=== PATIENT | male | born 1960 | race Caucasian/White ===

== ENCOUNTER 2024-02-29 10:29 | Observation (INO) | payer MEDICARE, OTHER ==
--- NOTE | 2024-02-29 11:06 | ED ---
General Adult HPI - General Chief complaint: Dizziness Stated complaint: Dizziness Time Seen by Provider: 02/29/24 10:30 Source: patient, RN notes reviewed Mode of arrival: EMS Limitations: no limitations - History of Present Illness Initial comments: Patient is a 63-year-old male present to the emergency department with concerns for lightheadedness. Patient states onset of symptoms was this morning. Patient felt lightheaded when he got up and felt achy. Patient does admit to having some shortness of breath and mild chest discomfort at the same time. Symptoms have near resolved at this time only feels a little bit achy. Patient is at [facility] secondary to history of cocaine use, last use was a few weeks ago as he was in a mental health facility followed by [facility] rehab facility - Related Data Home Medications Medication Instructions Recorded Confirmed Mirtazapine 7.5 mg PO HS 02/29/24 02/29/24 QUEtiapine [SEROquel] 50 mg PO HS 02/29/24 02/29/24 buPROPion HCL [Wellbutrin SR] 150 mg PO Q12H 02/29/24 02/29/24 lamoTRIgine [LaMICtal] 50 mg PO DAILY 02/29/24 02/29/24 Allergies Allergy/AdvReac Type Severity Reaction Status Date / Time No Known Allergies Allergy Verified 02/29/24 13:10 Review of Systems ROS Statement: Those systems with pertinent positive or pertinent negative responses have been documented in the HPI. ROS Other: All systems not noted in ROS Statement are negative. Constitutional: Denies: fever Eyes: Denies: eye pain ENT: Denies: throat pain Respiratory: Reports: as per HPI, dyspnea Cardiovascular: Reports: as per HPI, chest pain Gastrointestinal: Denies: abdominal pain Musculoskeletal: Denies: back pain Past Medical History Additional Past Medical History / Comment(s): Arthritis History of Any Multi-Drug Resistant Organisms: None Reported Past Surgical History: No Surgical Hx Reported Past Psychological History: Depression Smoking Status: Current every day smoker Past Alcohol Use History: None Reported Past Drug Use History: Cocaine, Marijuana General Exam Limitations: no limitations General appearance: alert, in no apparent distress Head exam: Present: normocephalic Eye exam: Present: normal appearance ENT exam: Present: other (Poor dentition) Neck exam: Present: normal inspection Respiratory exam: Present: normal lung sounds bilaterally Cardiovascular Exam: Present: regular rate, normal rhythm, normal heart sounds Expanded Peripheral pulses: 2+: Radial (R), Radial (L), Posterior Tibialis (R), Posterior Tibialis (L) GI/Abdominal exam: Present: soft. Absent: tenderness Extremities exam: Present: normal inspection. Absent: pedal edema, calf tenderness Neurological exam: Present: alert Psychiatric exam: Present: normal affect, normal mood Skin exam: Present: normal color Course Vital Signs 02/29/24 02/29/24 02/29/24 10:39 12:08 12:09 Temperature 98.5 F Pulse Rate 58 L Pulse Rate [ 56 L 59 L Manager Drug Safety ] Respiratory 18 18 18 Rate Blood Pressure 130/81 Blood Pressure 134/79 [Right Arm Sitting] Blood Pressure [Right Arm Standing] Blood Pressure 133/88 [Right Arm Supine] O2 Sat by Pulse 96 97 96 Oximetry 02/29/24 12:10 Temperature Pulse Rate Pulse Rate [ 60 Manager Drug Safety ] Respiratory 18 Rate Blood Pressure Blood Pressure [Right Arm Sitting] Blood Pressure 134/74 [Right Arm Standing] Blood Pressure [Right Arm Supine] O2 Sat by Pulse 95 Oximetry EKG Findings - EKG Results: EKG: interpreted by ERMD, sinus rhythm, normal axis, normal QRS, normal ST/T EKG shows: bradycardia Medical Decision Making - Medical Decision Making Was pt. sent in by a medical professional or institution (NELSY Kang, CHIEF NURSING OFFICER, urgent care, hospital, or penitentiary...) When possible be specific @ -Patient sent from [facility] Did you speak to anyone other than the patient for history (EMS, parent, family, police, friend...)? What history was obtained from this source @ -No Did you review nursing and triage notes (agree or disagree)? Why? @ -I reviewed and agree with nursing and triage notes Were old charts reviewed (outside hosp., previous admission, EMS record, old EKG, old radiological studies, urgent care reports/EKG's, penitentiary records)? Report findings @ -Notes reviewed from [facility] including concerns for chest pain and shortness of breath with history of cardiac disease Differential Diagnosis (chest pain, altered mental status, abdominal pain women, abdominal pain men, vaginal bleeding, weakness, fever, dyspnea, syncope, headache, dizziness, GI bleed, back pain, seizure, CVA, palpatations, mental health, musculoskeletal)? @ -Not applicable EKG interpreted by me (3pts min.). @ -As above X-rays interpreted by me (1pt min.). @ -Chest x-ray shows no acute process CT interpreted by me (1pt min.). @ -CT chest negative for pulmonary embolism U/S interpreted by me (1pt. min.). @ -None done What testing was considered but not performed or refused? (CT, X-rays, U/S, labs)? Why? @ -None What meds were considered but not given or refused? Why? @ -None Did you discuss the management of the patient with other professionals (professionals i.e. DrWinifred, PA, CHIEF NURSING OFFICER, lab, RT, psych nurse, social welfare clerk, manager mission, teacher, court officer, caser up)? Give summary @ -Case discussed with Dr. Perla who will admit covering hospital call Was smoking cessation discussed for >3mins.? @ -No Was critical care preformed (if so, how long)? @ -No Were there social determinants of health that impacted care today? How? (Homelessness, low income, unemployed, alcoholism, drug addiction, transportation, low edu. Level, literacy, decrease access to med. care, usp, rehab)? @ -No Was there de-escalation of care discussed even if they declined (Discuss DNR or withdrawal of care, Hospice)? DNR status @ -No What co-morbidities impacted this encounter? (DM, HTN, Smoking, COPD, CAD, Cancer, CVA, ARF, Chemo, Hep., AIDS, mental health diagnosis, sleep apnea, morbid obesity)? @ -Coronary artery disease, cocaine use Was patient admitted / discharged? Hospital course, mention meds given and route, prescriptions, significant lab abnormalities, going to OR and other pertinent info. @ -Patient presents with lightheadedness with associated chest pain and shortness of breath and cardiac history. Patient will be admitted, admission orders written. Consult placed Undiagnosed new problem with uncertain prognosis? @ -No Drug Therapy requiring intensive monitoring for toxicity (Heparin, Nitro, Insulin, Cardizem)? @ -No Were any procedures done? @ -No Diagnosis/symptom? @ -Chest pain Acute, or Chronic, or Acute on Chronic? @ -Acute Uncomplicated (without systemic symptoms) or Complicated (systemic symptoms)? @ -Default Side effects of treatment? @ -No Exacerbation, Progression, or Severe Exacerbation? @ -No Poses a threat to life or bodily function? How? (Chest pain, USA, MA, pneumonia, PE, COPD, DKA, ARF, appy, cholecystitis, CVA, Diverticulitis, Homicidal, Suicidal, threat to staff... and all critical care pts) @ -Threat to cardiac function - Lab Data Result diagrams: 02/29/24 11:43 02/29/24 11:43 Lab Results 02/29/24 02/29/24 02/29/24 Range/Units 11:43 11:43 11:43 WBC 9.4 (3.8-10.6) k/uL RBC 4.71 (4.30-5.90) m/uL Hgb 14.7 (13.0-17.5) gm/dL Hct 45.1 (39.0-53.0) % MCV 95.8 (80.0-100.0) fL MCH 31.2 (25.0-35.0) pg MCHC 32.6 (31.0-37.0) g/dL RDW 13.2 (11.5-15.5) % Plt Count 178 (150-450) k/uL MPV 9.6 Neutrophils % 54 % Lymphocytes % 31 % Monocytes % 8 % Eosinophils % 2 % Basophils % 1 % Neutrophils # 5.0 (1.3-7.7) k/uL Lymphocytes # 2.9 (1.0-4.8) k/uL Monocytes # 0.8 (0-1.0) k/uL Eosinophils # 0.2 (0-0.7) k/uL Basophils # 0.1 (0-0.2) k/uL PT 11.3 (10.0-12.5) sec INR 1.0 (<1.2) APTT 23.8 (22.0-30.0) sec D-Dimer 0.82 H (<0.60) mg/L FEU Sodium 136 L (137-145) mmol/L Potassium 4.7 (3.5-5.1) mmol/L Chloride 106 (98-107) mmol/L Carbon Dioxide 25 (22-30) mmol/L Anion Gap 5 mmol/L BUN 19 (9-20) mg/dL Creatinine 0.76 (0.66-1.25) mg/dL Est GFR (CKD-EPI)AfAm >90 (>60 ml/min/1.73 sqM) Est GFR (CKD-EPI)NonAf >90 (>60 ml/min/1.73 sqM) Glucose 93 (74-99) mg/dL Calcium 8.9 (8.4-10.2) mg/dL Magnesium 1.9 (1.6-2.3) mg/dL Total Bilirubin 0.8 (0.2-1.3) mg/dL AST 61 H (17-59) U/L ALT 73 H (4-49) U/L Alkaline Phosphatase 100 (38-126) U/L Troponin I (0.000-0.034) ng/mL Total Protein 7.4 (6.3-8.2) g/dL Albumin 4.0 (3.5-5.0) g/dL 02/29/24 Range/Units 11:43 WBC (3.8-10.6) k/uL RBC (4.30-5.90) m/uL Hgb (13.0-17.5) gm/dL Hct (39.0-53.0) % MCV (80.0-100.0) fL MCH (25.0-35.0) pg MCHC (31.0-37.0) g/dL RDW (11.5-15.5) % Plt Count (150-450) k/uL MPV Neutrophils % % Lymphocytes % % Monocytes % % Eosinophils % % Basophils % % Neutrophils # (1.3-7.7) k/uL Lymphocytes # (1.0-4.8) k/uL Monocytes # (0-1.0) k/uL Eosinophils # (0-0.7) k/uL Basophils # (0-0.2) k/uL PT (10.0-12.5) sec INR (<1.2) APTT (22.0-30.0) sec D-Dimer (<0.60) mg/L FEU Sodium (137-145) mmol/L Potassium (3.5-5.1) mmol/L Chloride (98-107) mmol/L Carbon Dioxide (22-30) mmol/L Anion Gap mmol/L BUN (9-20) mg/dL Creatinine (0.66-1.25) mg/dL Est GFR (CKD-EPI)AfAm (>60 ml/min/1.73 sqM) Est GFR (CKD-EPI)NonAf (>60 ml/min/1.73 sqM) Glucose (74-99) mg/dL Calcium (8.4-10.2) mg/dL Magnesium (1.6-2.3) mg/dL Total Bilirubin (0.2-1.3) mg/dL AST (17-59) U/L ALT (4-49) U/L Alkaline Phosphatase (38-126) U/L Troponin I <0.012 (0.000-0.034) ng/mL Total Protein (6.3-8.2) g/dL Albumin (3.5-5.0) g/dL Disposition Clinical Impression: Chest pain Disposition: ADMITTED IP TO THIS HOSP Is patient prescribed a controlled substance at d/c from ED?: No Referrals: None,Stated [Primary Care Provider] - 1-2 days Time of Disposition: 13:42
--- NOTE | 2024-02-29 11:26 | XR ---
EXAMINATION TYPE: XR chest 2V DATE OF EXAM: 02/29/2024 11:22 AM COMPARISON: None CLINICAL INDICATION: Male, 63 years old with history of Chest Pain; [facility] TECHNIQUE: XR chest 2V Frontal and lateral views of the chest. FINDINGS: Lungs/Pleura: There is no evidence of pleural effusion, focal consolidation, or pneumothorax. Pulmonary vascularity: Unremarkable. Heart/mediastinum: Cardiomediastinal silhouette is unremarkable. Musculoskeletal: No acute osseous pathology. IMPRESSION: No acute cardiopulmonary disease/process. [facility], , 02/29/2024 11:24 AM
[2024-02-29] MEDS: ASPIRIN 81 MG PO STA (11:43)
[2024-02-29 12:04] LABS: Basophils # (A) 0.1 k/uL (0-0.2); Basophils % (A) 1 %; Eosinophils # (A) 0.2 k/uL (0-0.7); Eosinophils % (A) 2 %; HCT 45.1 % (39.0-53.0); HGB 14.7 gm/dL (13.0-17.5); Lymphocytes # (A) 2.9 k/uL (1.0-4.8); Lymphocytes % (A) 31 %; MCH 31.2 pg (25.0-35.0); MCHC 32.6 g/dL (31.0-37.0); MCV 95.8 fL (80.0-100.0); Mean Platelet Volume 9.6; Monocytes # (A) 0.8 k/uL (0-1.0); Monocytes % (A) 8 %; Neutrophils % (A) 54 %; Platelet Count 178 k/uL (150-450); RBC 4.71 m/uL (4.30-5.90); RDW 13.2 % (11.5-15.5); WBC 9.4 k/uL (3.8-10.6)
[2024-02-29 12:13] LABS: ALT 73 U/L (4-49); AST 61 U/L (17-59); African American GFR (CKD) >90 (>60 ml/min/1.73 sqM); Alkaline Phosphatase 100 U/L (38-126); Anion Gap 5 mmol/L; Blood Urea Nitrogen 19 mg/dL (9-20); Calcium 8.9 mg/dL (8.4-10.2); Carbon Dioxide 25 mmol/L (22-30); Chloride 106 mmol/L (98-107); Glucose 93 mg/dL (74-99); Magnesium 1.9 mg/dL (1.6-2.3); Non-African American GFR(CKD) >90 (>60 ml/min/1.73 sqM); Potassium 4.7 mmol/L (3.5-5.1); Sodium 136 mmol/L (137-145); Total Bilirubin 0.8 mg/dL (0.2-1.3); Total Protein 7.4 g/dL (6.3-8.2)
[2024-02-29 12:16] LABS: Partial Thromboplastin Time 23.8 sec (22.0-30.0); Prothrombin Time 11.3 sec (10.0-12.5)
--- NOTE | 2024-02-29 13:13 | CT ---
EXAMINATION TYPE: CT angio chest CT DLP: 744.7 mGycm, Automated exposure control for dose reduction was used. DATE OF EXAM: 02/29/2024 1:07 PM COMPARISON: Chest radiograph from same day. CLINICAL INDICATION:Male, 63 years old with history of dyspnea; SOB TECHNIQUE/CONTRAST: CTA scan of the thorax is performed with IV Contrast, patient injected with 100 mL of Isovue 370, pul monary embolism protocol. MIP images are created and reviewed. FINDINGS: Pulmonary Artery: There is no evidence for a filling defect within the pulmonary vasculature to sugge st acute pulmonary embolism. The pulmonary artery is of normal size. Reflux of contrast into the IVC . Lungs/Pleura: No evidence of focal consolidation, pleural effusion or pneumothorax. Small bibasilar d ependent atelectasis. Linear scarring within the left apex. Few scattered punctate calcified granulom as. Airway: Large airways are patent. Heart: Heart is within normal limits for size.. No pericardial effusion. Vasculature: No evidence of aortic aneurysm. Mild atherosclerotic calcification of the aortic arch. B ovine aortic arch. Mediastinum: No evidence of adenopathy. Musculoskeletal: No acute osseous abnormalities. Multilevel degenerative disc disease. Scoliotic curv ature of the thoracic spine. Soft Tissues: Bilateral gynecomastia. Lower neck: No significant findings. Upper Abdomen: No significant findings. IMPRESSION: No evidence of pulmonary embolism or acute thoracic process. [facility], , 02/29/2024 1:11 PM
[2024-02-29] MEDS ORDERED: NITROGLYCERIN SL TABS 0.4 MG TAB SUBLINGUAL PRN (13:43)
[2024-02-29] MEDS: NITROGLYCERIN OINT 1 INCH/GM PACKET TOPICAL SCH (14:19)
--- NOTE | 2024-02-29 14:56 | P.HPIM ---
History of Present Illness H&P Date: 02/29/24 History of present illness; patient is a 63-year-old gentleman with past medical history significant for coronary artery disease, polysubstance abuse presented to the ER because of lightheadedness. Patient is going through detox at [place]. Patient stated that he was all right this morning when he started noticing getting lightheaded. Patient denied any blurred vision. There was no complaint of headache. Patient did complain of chest pain and shortness of breath. Chest pain was central in location, pressure-like, nonradiating. There was no complaint of fever or chills. Denies any orthopnea or PND. Because of the lightheadedness and chest pain, patient brought to the ER Initial lab work done in the ER showed showed WBC 9.4, hemoglobin 14.7, platelet count 178, D-dimer 0.82, sodium 130s, potassium 4.7, BUN 19, and 0.76, AST 61, ALT 73 troponin 0.0 point EKG done in the ER showed heart rate of 54, no ST segment elevation or depression seen, no T-wave inversions seen. Chest x-ray done in the ER no acute cardiopulmonary process CTA chest done was negative for PE Patient admitted to internal medicine service REVIEW OF SYSTEMS: CONSTITUTIONAL: No fever, no malaise, no fatigue. HEENT: No recent visual problems or hearing problems. Denied any sore throat. CARDIOVASCULAR: As mentioned above PULMONARY: As mentioned above GASTROINTESTINAL: No diarrhea, no nausea, no vomiting, no abdominal pain. NEUROLOGICAL: No headaches, no weakness, no numbness. HEMATOLOGICAL: Denies any bleeding or petechiae. GENITOURINARY: Denies any burning micturition, frequency, or urgency. MUSCULOSKELETAL/RHEUMATOLOGICAL: Denies any joint pain, swelling, or any muscle pain. ENDOCRINE: Denies any polyuria or polydipsia. The rest of the 14-point review of systems is negative. PHYSICAL EXAMINATION: GENERAL: The patient is alert and oriented x3, not in any acute distress. Well developed, well nourished. HEENT: Pupils are round and equally reacting to light. EOMI. No scleral icterus. No conjunctival pallor. Normocephalic, atraumatic. No pharyngeal erythema. No thyromegaly. CARDIOVASCULAR: S1 and S2 present. No murmurs, rubs, or gallops. PULMONARY: Chest is clear to auscultation, no wheezing or crackles. ABDOMEN: Soft, nontender, nondistended, normoactive bowel sounds. No palpable organomegaly. MUSCULOSKELETAL: No joint swelling or deformity. EXTREMITIES: No cyanosis, clubbing, or pedal edema. NEUROLOGICAL: Gross neurological examination did not reveal any focal deficits. SKIN: No rashes. Assessment and plan Chest pain, rule out acute coronary syndrome Lightheadedness Polysubstance abuse Monitor vital signs Monitor CBC Monitor CMP Continue telemetry monitoring Trend troponin Orthostatics Ordered 2D echo Resume home meds Consult cardiology Labs and medication were reviewed.. Continue same treatment. Continue with symptomatic treatment. Resume home medication. Monitor labs and vitals. DVT and GI prophylaxis. Further recommendations as per clinical course of the patient Dictation was produced using [employer] dictation software. please excuse any grammatical, word or spelling errors. Past Medical History Additional Past Medical History / Comment(s): Arthritis History of Any Multi-Drug Resistant Organisms: None Reported Past Surgical History: No Surgical Hx Reported Past Psychological History: Depression Smoking Status: Current every day smoker Past Alcohol Use History: None Reported Past Drug Use History: Cocaine, Marijuana Medications and Allergies Home Medications Medication Instructions Recorded Confirmed Type Mirtazapine 7.5 mg PO HS 02/29/24 02/29/24 History QUEtiapine [SEROquel] 50 mg PO HS 02/29/24 02/29/24 History buPROPion HCL [Wellbutrin SR] 150 mg PO Q12H 02/29/24 02/29/24 History lamoTRIgine [LaMICtal] 50 mg PO DAILY 02/29/24 02/29/24 History Allergies Allergy/AdvReac Type Severity Reaction Status Date / Time No Known Allergies Allergy Verified 02/29/24 13:10 Physical Exam Vitals: Vital Signs Temp Pulse Pulse Resp BP BP BP 02/29/24 12:10 60 18 134/74 02/29/24 12:09 59 L 18 134/79 02/29/24 12:08 56 L 18 02/29/24 10:39 98.5 F 58 L 18 130/81 BP Pulse Ox 02/29/24 12:10 95 02/29/24 12:09 96 02/29/24 12:08 133/88 97 10/31/24 10:39 96 Intake and Output 02/28/24 02/29/24 02/29/24 22:59 06:59 14:59 Other: Weight 104.326 kg Results CBC & Chem 7: 02/29/24 11:43 02/29/24 11:43 Labs: Abnormal Lab Results - Last 24 Hours (Table) 02/29/24 02/29/24 Range/Units 11:43 11:43 D-Dimer 0.82 H (<0.60) mg/L FEU Sodium 136 L (137-145) mmol/L AST 61 H (17-59) U/L ALT 73 H (4-49) U/L
[2024-02-29] MEDS: MIRTAZAPINE 15 MG TAB PO SCH (23:07)
[2024-02-29] MEDS: buPROPion SR 150 MG TABLET.ER PO SCH (23:07)
[2024-02-29] MEDS: QUEtiapine 50 MG TAB PO SCH (23:07)
[2024-03-01] MEDS ORDERED: DOBUTamine DRIP for NUC MED 500 MG in DEXTROSE/WATER 1 250ML.BAG IV PRN ×2 (07:38→07:46)
[2024-03-01 07:44] VITALS: BP 109/65; PULSE 59; RESP 18; TEMP 99.2
[2024-03-01] MEDS ORDERED: DOBUTamine DRIP for NUC MED 500 MG/250 ML BAG IV ONE (08:00)
[2024-03-01 08:17] LABS: Basophils # (A) 0.07 X 10*3/uL (0.00-0.10); Basophils % (A) 0.8 %; Eosinophils # (A) 0.17 X 10*3/uL (0.04-0.35); HGB 14.6 g/dL (13.0-17.0); Lymphocytes # (A) 2.49 X 10*3/uL (0.90-5.00); Lymphocytes % (A) 29.3 %; MCH 32.1 pg (27.0-32.0); MCHC 33.2 g/dL (32.0-37.0); MCV 96.7 FL (80.0-97.0); Mean Platelet Volume 12.6 FL (9.5-12.2); Monocytes # (A) 0.92 X 10*3/uL (0.20-1.00); Monocytes % (A) 10.8 %; NRBC Per 100 WBC 0 X 10*3/uL (0.00-0.01); Neutrophils # (A) 4.83 X 10*3/uL (1.80-7.70); Neutrophils % (A) 56.7 %; Platelet Count 162 X 10*3/uL (140-440); RBC 4.55 X 10*6/uL (4.40-5.60); RDW 13.2 % (11.5-14.5); WBC 8.51 X 10*3/uL (4.50-10.00)
[2024-03-01] MEDS: lamoTRIgine 25 MG TAB PO SCH (08:32)
[2024-03-01] MEDS: ASPIRIN 325 MG TAB PO SCH (08:33)
[2024-03-01 08:56] LABS: ALT 65 U/L (10-49); AST 51 U/L (14-35); Albumin 3.7 g/dL (3.8-4.9); Albumin/Globulin Ratio 1.12 Ratio (1.60-3.17); Alkaline Phosphatase 118 U/L (41-126); BUN/Creat Ratio 21.33 Ratio (12.00-20.00); Blood Urea Nitrogen 19.2 mg/dL (9.0-27.0); Calcium 8.9 mg/dL (8.7-10.3); Carbon Dioxide 24.6 mmol/L (21.6-31.8); Chloride 104 mmol/L (96-109); Chol/HDL Ratio 4.31 Ratio; Globulin 3.3 g/dL (1.6-3.3); Glucose 102 mg/dL (70-110); LDL Cholesterol,Calculated 84.5 mg/dL (0.0-131.0); Potassium 4.5 mmol/L (3.5-5.5); Sodium 138 mmol/L (135-145); Total Bilirubin 0.4 mg/dL (0.3-1.2); VLDL Calculation 19.16 mg/dL (5.00-40.00)
--- NOTE | 2024-03-01 09:31 | P.CRDCN ---
History of Present Illness Consult date: 03/01/24 Consult reason: chest pain History of present illness: This is a 63-year-old male patient with past medical history of coronary artery disease with previous angioplasty in 2016, tobacco use and dependence, marijuana and cocaine use. We have been asked to evaluate the patient for chest pain. Patient arrived here from [place] rehab facility as he states he was feeling dizzy and weak in his legs. Patient denies having any shortness of b reath and no chest pain. The ER documented the patient did have some symptoms of chest pain that had resolved. His last cocaine use was a few weeks ago. He is very anxious to return to [place] and continue his rehab. He has no chest pain and no dizziness at this time. Blood pressure 120/70, heart rate 59, pulse ox 95% on room air. Orthostatic vital signs are negative. EKG: Sinus bradycardia Chest x-ray: No acute process. CTA of the chest showed no evidence of pulmonary embolism or acute thoracic process. Laboratory studies: WBC 8.5, hemoglobin 14.6. Electrolytes are normal. Creat inine 0.9. Troponin negative x 3. AST 51 and ALT 65. Triglycerides 95, cholesterol 135, LDL 84, HDL 31. Home cardiac medications: None Review Of Systems: At the time of my exam: CONSTITUTIONAL: Denies fever or chills. HEENT: Denies blurred vision, vision changes, or eye pain. Denies hemoptysis CARDIOVASCULAR: Denies chest pain. Denies orthopnea. Denies PND. Denies palpitations RESPIRATORY: Denies shortness of breath. GASTROINTESTINAL: Denies abdominal pain. Denies nausea or vomiting. HEMATOLOGIC: Denies bleeding disorders. GENITOURINARY: Denies any blood in urine. SKIN: Denies puritis. Denies rash. Physical examination: Gen: This is a 63-year-old male in no acute distress VS: reviewed HEENT: Head is atraumatic, normocephalic. Pupils equal, round. Sclerae is anicteric. NECK: Supple. No JVD. LUNGS: Clear to auscultation. No wheezes or rhonchi. No intercostal retractions. HEART: Regular rate and rhythm. No murmur. ABDOMEN: Soft No tenderness. EXTREMITIES: No pedal edema. No calf tenderness. NEUROLOGICAL: Patient is awake, alert and oriented x3. Assessment: Atypical chest pain, acute coronary syndrome ruled out History of coronary artery disease with previous angioplasty in 2016 Tobacco use and dependence Cocaine use and marijuana use currently in rehab Plan: Schedule patient for dobutamine stress echocardiogram today Obtain 2-D echocardiogram and Doppler study to assess cardiac structure and function If testing is unremarkable, patient is cleared for discharge from cardiology perspective. Thank you kindly for this consultation. Nurse practitioner note has been reviewed, I agree with documented findings and plan of care. Patient was seen and examined. Past Medical History Additional Past Medical History / Comment(s): Arthritis, aneurysm History of Any Multi-Drug Resistant Organisms: None Reported Past Surgical History: Heart Catheterization With Stent Date of Last Stent Placement:: 2015 Past Psychological History: Depression Smoking Status: Current every day smoker Past Alcohol Use History: None Reported Past Drug Use History: Cocaine, Marijuana Medications and Allergies Home Medications Medication Instructions Recorded Confirmed Type Mirtazapine 7.5 mg PO HS 02/29/24 02/29/24 History QUEtiapine [SEROquel] 50 mg PO HS 02/29/24 02/29/24 History buPROPion HCL [Wellbutrin SR] 150 mg PO Q12H 02/29/24 02/29/24 History lamoTRIgine [LaMICtal] 50 mg PO DAILY 02/29/24 02/29/24 History Allergies Allergy/AdvReac Type Severity Reaction Status Date / Time No Known Allergies Allergy Verified 02/29/24 13:10 Physical Exam Vitals: Vital Signs Temp Pulse Pulse Resp BP BP BP 03/01/24 00:54 98.0 F 61 16 104/65 02/29/24 21:00 98.0 F 54 L 16 152/85 02/29/24 20:03 58 L 18 124/78 02/29/24 19:55 58 L 18 124/78 02/29/24 17:56 61 18 135/88 02/29/24 15:36 80 18 154/85 02/29/24 12:10 60 18 134/74 02/29/24 12:09 59 L 18 134/79 02/29/24 12:08 56 L 18 02/29/24 10:39 98.5 F 58 L 18 130/81 BP Pulse Ox 03/01/24 00:54 95 02/29/24 21:00 94 L 02/29/24 20:03 94 L 02/29/24 19:55 94 L 02/29/24 17:56 95 02/29/24 15:36 96 02/29/24 12:10 95 02/29/24 12:09 96 02/29/24 12:08 133/88 97 02/29/24 10:39 96 Intake and Output 02/29/24 03/01/24 03/01/24 22:59 06:59 14:59 Intake Total 980 0 Balance 980 0 Intake: Oral 980 0 Other: # Voids 2 2 Weight 104.326 kg Results 03/01/24 05:59 03/01/24 05:59 Cardiac Enzymes 02/29/24 02/29/24 02/29/24 Range/Units 11:43 11:43 14:24 AST 61 H (17-59) U/L Troponin I <0.012 <0.012 (0.000-0.034) ng/mL 02/29/24 Range/Units 17:47 AST (17-59) U/L Troponin I <0.012 (0.000-0.034) ng/mL Coagulation 02/29/24 Range/Units 11:43 PT 11.3 (10.0-12.5) sec APTT 23.8 (22.0-30.0) sec CBC 02/29/24 Range/Units 11:43 WBC 9.4 (3.8-10.6) k/uL RBC 4.71 (4.30-5.90) m/uL Hgb 14.7 (13.0-17.5) gm/dL Hct 45.1 (39.0-53.0) % Plt Count 178 (150-450) k/uL Comprehensive Metabolic Panel 02/29/24 Range/Units 11:43 Sodium 136 L (137-145) mmol/L Potassium 4.7 (3.5-5.1) mmol/L Chloride 106 (98-107) mmol/L Carbon Dioxide 25 (22-30) mmol/L BUN 19 (9-20) mg/dL Creatinine 0.76 (0.66-1.25) mg/dL Glucose 93 (74-99) mg/dL Calcium 8.9 (8.4-10.2) mg/dL AST 61 H (17-59) U/L ALT 73 H (4-49) U/L Alkaline Phosphatase 100 (38-126) U/L Total Protein 7.4 (6.3-8.2) g/dL Albumin 4.0 (3.5-5.0) g/dL Current Medications Generic Name Dose Route Start Last Admin Trade Name Freq PRN Reason Stop Dose Admin Aspirin 325 mg 03/01/24 09:00 Aspirin 325 Mg Tab PO DAILY KATE Bupropion HCl 150 mg 02/29/24 21:00 02/29/24 23:07 Bupropion Sr 150 Mg Tablet.Er PO 150 mg Q12HR KATE Administration Lamotrigine 50 mg 03/01/24 09:00 Lamotrigine 25 Mg Tab PO DAILY KATE Mirtazapine 7.5 mg 02/29/24 21:00 02/29/24 23:07 Mirtazapine 15 Mg Tab PO 7.5 mg HS KATE Administration Nitroglycerin 0.4 mg 02/29/24 13:43 Nitroglycerin Sl Tabs 0.4 Mg Tab SUBLINGUAL Q5M PRN Chest Pain Nitroglycerin 1 inch 02/29/24 13:45 03/01/24 06:24 Nitroglycerin Oint 1 Inch/Gm Packet TOPICAL Not Given Q6HR AKTE Quetiapine Fumarate 50 mg 02/29/24 21:00 02/29/24 23:07 Quetiapine 50 Mg Tab PO 50 mg HS KATE Administration Intake and Output 02/29/24 03/01/24 03/01/24 22:59 06:59 14:59 Intake Total 980 0 Balance 980 0 Intake: Oral 980 0 Other: # Voids 2 2 Weight 104.326 kg 02/29/24 11:43 02/29/24 11:43
[2024-03-01] MEDS ORDERED: ATROPINE SULFATE 0.1 MG/ML 10ML SYRINGE ONE (09:50)
--- NOTE | 2024-03-01 11:03 | CA ---
Transthoracic Echo Report Name: Eldon Yadav Age: 63 Gender: M : 1960 Exam Date: 03/01/2024 09:58 Exam Location: [facility] Ht (in): 69 Wt (lb): 235 Ordering Physician: Claudio Dueñas MD Attending/Referring Phys: Agricultural Technical Officer Sonia Mckenzie RDCS Procedure CPT: Indications: Chest Pain Cardiac Hx: Cath, Stent Technical Quality: Fair Contrast 1: Definity Total Dose (mL): 2 Contrast 2: Total Dose (mL): MEASUREMENTS (Male / Female) Normal Values 2D ECHO LV Diastolic Diameter PLAX 3.9 cm 4.2 - 5.9 / 3.9 - 5.3 cm LV Systolic Diameter PLAX 2.0 cm IVS Diastolic Thickness 1.3 cm 0.6 - 1.0 / 0.6 - 0.9 cm LVPW Diastolic Thickness 1.5 cm 0.6 - 1.0 / 0.6 - 0.9 cm LV Relative Wall Thickness 0.7 RV Internal Dim ED PLAX 1.9 cm LA Systolic Diameter LX 4.0 cm 3.0 - 4.0 / 2.7 - 3.8 cm M-MODE Aortic Root Diameter MM 3.4 cm LA Systolic Diameter MM 4.1 cm LA Ao Ratio MM 1.2 AV Cusp Separation MM 2.0 cm DOPPLER Mitral E Point Velocity 54.6 cm/s Mitral A Point Velocity 79.9 cm/s Mitral E to A Ratio 0.7 MV Deceleration Time 263.8 ms FINDINGS Left Ventricle Left ventricular ejection fraction is estimated at 55-60%. Mildly increased septal wall thickness. No obvious regional wall motion abnormalities. Left ventricular cavity size normal. Right Ventricle Normal right ventricular size and function. Unable to estimate the right ventricular systolic pressure. Right Atrium Normal right atrial size. Left Atrium Normal left atrial size. Mitral Valve Structurally normal mitral valve. Trace to mild mitral regurgitation. No mitral stenosis. Aortic Valve Trileaflet aortic valve. No aortic valve stenosis or regurgitation. Tricuspid Valve Structurally normal tricuspid valve. No tricuspid regurgitation. No tricuspid stenosis. Pulmonic Valve Structurally normal pulmonic valve. No pulmonic stenosis. Trace pulmonic regurgitation. Pericardium No pericardial or pleural effusion. Aorta Normal size aortic root and proximal ascending aorta. CONCLUSIONS Normal LV function Previewed by: Dr. Gonzalez Celis MD (Electronically Signed) Final Date: 01 March 2024 11:02
--- NOTE | 2024-03-01 11:05 | CA ---
Dobutamine Stress Echocardiogram Report Eldon Yadav Age: 63 Gender: M : 1960 Exam Date: 03/01/2024 09:25 Exam Location: [facility] Ordering Physician: Silvana Antony Referring Physician: Arpan RIVERA Etl Manager: Sonia Mckenzie RDCS Technologist: Ht (in): 69 Wt (lb): 230 Procedure CPT: Indication: Chest Pain ICD-9 Codes: Rhythm: Patient History: CHEST PAIN, HTN, FAMILY HX OF HEART DISEASE, CURRENT SMOKER, PRIOR HEART CATH WITH 2 STENTS Cardiac Medications: Medications in past 24 hours: Contrast: Definity Total Dose (mL): 3 Stress Results Protocol: Dobutamine Peak Dose (???g/kg/min): 40 Duration (min:sec): Atropine:(mg) Target HR: 132 Double Product: 22392 Resting HR: 53 Resting BP: 138 / 76 Peak HR: 136 Peak BP: 169 / 73 Max Predicted HR: 155 88 % Max Predicted HR Stress Summary: 0.5 mg Atropine also admin to reach target HR BP Response: Reason for Termination: Target HR Cardiac Symptoms: NO SYMPTOMS ECG Analysis Resting EKG: Normal sinus rhythm normal axis normal intervals Stress EKG: Patient was given intravenous dobutamine per protocol achieving 85% of predicted maximal heart rate without chest pain or diagnostic ST segment depression patient also received atropine per protocol Arrhythmia: Echo Analysis Base Echo Analysis: Normal left ventricular size wall motion and systolic function endocardial visualization enhanced with contrast agent Low Echo Anaylsis: Normal Peak Echo Analysis: Normal hyperdynamic response Recovery Echo: Normal MEASUREMENTS (Male/Female) Normal Values CONCLUSIONS Negative dobutamine stress echo Dr. Gonzalez Celis MD (Electronically Signed) Final Date: 01 March 2024 11:04
--- NOTE | 2024-03-01 11:22 | P.DS ---
Providers Date of admission: 02/29/24 13:44 Expected date of discharge: 03/01/24 Attending physician: Gabe Lazaro Consults: 02/29/24 13:43 Consult Physician Urgent Consulting Provider: Jaime Daily Consult Reason/Comments: cp Do you want consulting provider notified?: Yes Primary care physician: Stated None Hospital Course: Discharge diagnoses; Chest pain, acute coronary syndrome ruled out Lightheadedness Polysubstance abuse Hospital course; patient is a 63-year-old gentleman with past medical history significant for coronary artery disease, polysubstance abuse presented to the ER because of lightheadedness. Patient is going through detox at [place]. Patient stated that he was all right this morning when he started noticing getting lightheaded. Patient denied any blurred vision. There was no complaint of headache. Patient did complain of chest pain and shortness of breath. Chest pain was central in location, pressure-like, nonradiating. There was no complaint of fever or chills. Denies any orthopnea or PND. Because of the lightheadedness and chest pain, patient brought to the ER Initial lab work done in the ER showed showed WBC 9.4, hemoglobin 14.7, platelet count 178, D-dimer 0.82, sodium 130s, potassium 4.7, BUN 19, and 0.76, AST 61, ALT 73 troponin 0.0 point EKG done in the ER showed heart rate of 54, no ST segment elevation or depre ssion seen, no T-wave inversions seen. Chest x-ray done in the ER no acute cardiopulmonary process CTA chest done was negative for PE Patient admitted to internal medicine service 03/01. Patient was seen by cardiology, 2D echo done showed normal LV function. Dobutamine stress echo was negative for any ischemia. Being discharged in stable condition PHYSICAL EXAMINATION: GENERAL: The patient is alert and oriented x3, not in any acute distress. Well developed, well nourished. HEENT: Pupils are round and equally reacting to light. EOMI. No scleral icterus. No conjunctival pallor. Normocephalic, atraumatic. No pharyngeal erythema. No thyromegaly. CARDIOVASCULAR: S1 and S2 present. No murmurs, rubs, or gallops. PULMONARY: Chest is clear to auscultation, no wheezing or crackles. ABDOMEN: Soft, nontender, nondistended, normoactive bowel sounds. No palpable organomegaly. MUSCULOSKELETAL: No joint swelling or deformity. EXTREMITIES: No cyanosis, clubbing, or pedal edema. NEUROLOGICAL: Gross neurological examination did not reveal any focal deficits. SKIN: No rashes. Dictation was produced using [employer] dictation software. please excuse any grammatical, word or spelling errors. Patient Condition at Discharge: Good Plan - Discharge Summary Discharge Rx Participant: No New Discharge Prescriptions: Continue lamoTRIgine [LaMICtal] 50 mg PO DAILY QUEtiapine [SEROquel] 50 mg PO HS Mirtazapine 7.5 mg PO HS buPROPion HCL [Wellbutrin SR] 150 mg PO Q12H Discharge Medication List Mirtazapine 7.5 mg PO HS 02/29/24 [History] QUEtiapine [SEROquel] 50 mg PO HS 02/29/24 [History] buPROPion HCL [Wellbutrin SR] 150 mg PO Q12H 02/29/24 [History] lamoTRIgine [LaMICtal] 50 mg PO DAILY 02/29/24 [History] Follow up Appointment(s)/Referral(s): None,Stated [Primary Care Provider] - 1-2 days Discharge Disposition: HOME SELF-CARE
== END 2024-03-01 12:20 | disposition home or self-care (01) ==
LOC: EC 10:29 → 6NMEDSUR 13:44
PROVIDERS: ADMIT Internal Medicine; ATTEND Internal Medicine
DX: R07.89 Other chest pain (principal); R42 Dizziness and giddiness; F32.A Depression, unspecified; I25.10 Atherosclerotic heart disease of native coronary artery without angina pectoris; F14.90 Cocaine use, unspecified, uncomplicated; F12.90 Cannabis use, unspecified, uncomplicated; F17.200 Nicotine dependence, unspecified, uncomplicated; Z95.5 Presence of coronary angioplasty implant and graft; Z79.899 Other long term (current) drug therapy
CPT/HCPCS: 99285; 36415; 93005 ×2; 85379; 80061; 80053 ×2; 80175; 83735; 84484; 85025 ×2; 85610; 85730; 71046; 71275; G0378 ×2; C8929; C8930; J1250; S0106 ×2; J0461; Q9957; Q9967; 93306; 93351